=== PATIENT | male | born 1955 | race Caucasian/White ===

== ENCOUNTER 2020-05-05 15:00 | Outpatient (CLI) | payer MEDICARE | END 2020-05-05 23:59 | disposition home or self-care (01) | LOC: RAD 15:00 → CVU 23:59 | PROVIDERS: ATTEND Internal Medicine Cardiovascular Disease | DX: Z01.810 Encounter for preprocedural cardiovascular examination (principal); I08.8 Other rheumatic multiple valve diseases; I10 Essential (primary) hypertension; E78.5 Hyperlipidemia, unspecified | CPT/HCPCS: 93306; 93356 ==

== ENCOUNTER 2020-05-07 12:34 | Outpatient (CLI) | payer MEDICARE ==
[2020-05-07] MEDS ORDERED: BLOOD PRESSURE (14:03)
[2020-05-07] MEDS ORDERED: STATIN (14:03)
[2020-05-07] MEDS ORDERED: ASPI-496 PO (14:03)
[2020-05-07 14:16] LABS: BASOPHILS # (AUTO) 0.04 x10^3/uL (0-0.1); BASOPHILS % (AUTO) 0 % (0-1); EOSINOPHILS # (AUTO) 0.24 x10^3/uL (0-0.4); EOSINOPHILS % (AUTO) 2 % (1-7); LYMPHOCYTES % (AUTO) 31 % (22-44); MD NO; MEAN CORPUSCULAR HEMOGLOBIN 31.1 pg (27.5-34.5); MEAN CORPUSCULAR HGB CONC 33.8 g/dL (33.2-36.2); MEAN PLATELET VOLUME 8.7 fL (7.4-10.4); MONOCYTES % (AUTO) 6 % (2-9); NEUTROPHILS # (AUTO) 5.99 x10^3/uL (1.8-6.8); NEUTROPHILS % (AUTO) 60 % (42-75); PLATELET COUNT 150 x10^3/uL (130-400); RED BLOOD COUNT 5.33 x10^6/uL (4.38-5.82); RED CELL DISTRIBUTION WIDTH 13.3 % (9.4-14.8)
[2020-05-07 14:17] LABS: MICROSCOPIC NOT IND
[2020-05-07 14:19] LABS: ALANINE AMINOTRANSFERASE 113 U/L (12-78); ALBUMIN 3.9 g/dL (3.4-5.0); ANION GAP 6 mmol/L (5-15); CALCIUM 8.7 mg/dL (8.5-10.1); CHLORIDE 108 mmol/L (98-107); INTERNATIONAL NORMALIZED RATIO 1.01 (0.93-1.1); PROTHROMBIN TIME 10.7 Seconds (9.6-11.5)
[2020-05-07 14:22] LABS: ALKALINE PHOSPHATASE 56 U/L (45-117); BILIRUBIN,TOTAL 0.7 mg/dL (0.2-1.0); CREATININE 0.99 mg/dL (0.7-1.3); TOTAL PROTEIN 7.3 g/dL (6.4-8.2)
== END 2020-05-07 23:59 | disposition home or self-care (01) ==
LOC: STAR 12:34
PROVIDERS: ATTEND Neurological Surgery
DX: Z01.810 Encounter for preprocedural cardiovascular examination (principal); Z01.818 Encounter for other preprocedural examination; Z01.812 Encounter for preprocedural laboratory examination; Z01.811 Encounter for preprocedural respiratory examination; R79.1 Abnormal coagulation profile; R82.90 Unspecified abnormal findings in urine; R94.31 Abnormal electrocardiogram [ECG] [EKG]; M51.37 Other intervertebral disc degeneration, lumbosacral region; I70.0 Atherosclerosis of aorta
CPT/HCPCS: 36415; 71046; 72110; 80053; 81003; 85025; 85610; 85730; 93005

== ENCOUNTER 2020-05-12 07:26 | Outpatient (CLI) | payer MEDICARE ==
[~2020-05-12 07:26] MED LIST: ASPI-496 PO; BLOOD PRESSURE; STATIN
== END 2020-05-12 23:59 | disposition home or self-care (01) ==
LOC: STAR 07:26
PROVIDERS: ATTEND Anesthesiology
DX: Z11.59 Encounter for screening for other viral diseases (principal)
CPT/HCPCS: 36415; 87635

== ENCOUNTER → 2020-05-26 | Outpatient (CLI) | payer MEDICARE | END | disposition home or self-care (01) | LOC: STAR 12:37 | PROVIDERS: ATTEND Anesthesiology | DX: Z01.818 Encounter for other preprocedural examination (principal); Z11.59 Encounter for screening for other viral diseases | CPT/HCPCS: 36415; 87635 ==

== ENCOUNTER 2020-05-30 07:45 | Observation (INO) | payer MEDICARE ==
[~2020-05-30] VITALS: Ht 182.9 cm; Wt 101.0 kg
[~2020-05-30 07:45] MED LIST changes: +BACITRACIN 50,000 UNIT ONE; +BUPIVACAINE/PF-EPI 0.5% 1:200K ONE
[2020-05-30] MEDS ORDERED: BUPIVACAINE 0.25% ONE (08:18)
[2020-05-30] MEDS ORDERED: BUPIVACAINE/PF-EPI 0.5% 1:200K ONE (08:18)
[2020-05-30] MEDS ORDERED: BACITRACIN 50,000 UNIT ONE (08:18)
[2020-05-30] MEDS ORDERED: VANCOMYCIN 1,000 MG ONE (08:18)
[2020-05-30] MEDS ORDERED: LACTATED RINGERS 1,000 ML IV SCH (08:37)
[2020-05-30] MEDS ORDERED: CHLORHEXIDINE 15 ML UDC MM ONE (09:00)
[2020-05-30] MEDS ORDERED: FENTANYL PF 250 MCG/5ML ONE (11:54)
[2020-05-30] MEDS ORDERED: MIDAZOLAM 1 MG/ML, 2ML ONE (11:54)
[2020-05-30] MEDS ORDERED: ONDANSETRON 2MG/ML, 2ML ONE (12:41)
[2020-05-30] MEDS ORDERED: DEXAMETHASONE 4 MG/ML, 1ML ONE (12:41)
[2020-05-30] MEDS ORDERED: SUCCINYLCHOLINE 20 MG/ML, 10ML ONE (12:41)
[2020-05-30] MEDS ORDERED: CEFAZOLIN 1,000 MG ONE (12:41)
[2020-05-30] MEDS ORDERED: PROPOFOL 50 ML ONE (13:47)
[2020-05-30] MEDS ORDERED: hydrALAzine 20 MG/ML, 1ML IV PRN (14:00)
[2020-05-30] MEDS ORDERED: ACETAMINOPHEN 325 MG TABLET PO PRN (14:00)
[2020-05-30] MEDS ORDERED: ALBUTEROL SULFATE 2.5 MG/3 ML NPPB PRN (14:00)
[2020-05-30] MEDS ORDERED: LABETALOL 5MG/ML, 20ML IV PRN (14:00)
[2020-05-30] MEDS ORDERED: FENTANYL PF 100 MCG/2ML IV PRN (14:00)
[2020-05-30] MEDS ORDERED: DIAZEPAM 5 MG/ML, 2ML IVPush PRN (14:00)
[2020-05-30] MEDS ORDERED: KETOROLAC 30 MG/1 ML IV PRN (14:00)
[2020-05-30] MEDS ORDERED: PROMETHAZINE 25 MG/ML, 1ML IV PRN (14:00)
[2020-05-30] MEDS ORDERED: MEPERIDINE/PF 25MG/0.5ML IVPush PRN (14:00)
[2020-05-30] MEDS ORDERED: OXYcodone 5 MG/5 ML ORAL.SOL UDC PO PRN (14:00)
[2020-05-30] MEDS ORDERED: HYDROmorphone 2 MG/ML, 1ML IVPush PRN (14:00)
[2020-05-30] MEDS ORDERED: FENTANYL PF 100 MCG/2ML ONE (14:13)
[2020-05-30] MEDS ORDERED: FENTANYL PF 100 MCG/2ML EPIDPUSH ONE (14:17)
[2020-05-30] MEDS ORDERED: BUPIVACAINE/PF 0.25% EPIDPUSH ONE (14:17)
[2020-05-30] MEDS ORDERED: PHARMACY MAY ADJ FOR RENAL FX MC PRN (15:00)
[2020-05-30] MEDS ORDERED: SENNA/DOCUSATE TABLET PO PRN (15:00)
[2020-05-30] MEDS ORDERED: HYDROcodone/APAP 5/325 TABLET PO PRN (15:00)
[2020-05-30] MEDS ORDERED: CYCLOBENZAPRINE 10 MG TABLET PO PRN (15:00)
[2020-05-30] MEDS ORDERED: HYDROcodone/APAP 10/325 MG TABLET PO PRN (15:00)
[2020-05-30] MEDS ORDERED: DIPHENHYDRAMINE 50 MG/ML, 1ML IVPush PRN (15:00)
[2020-05-30] MEDS ORDERED: METHOCARBAMOL 750 MG TABLET PO PRN (15:00)
[2020-05-30] MEDS ORDERED: LABETALOL 5MG/ML, 20ML IVPush PRN (15:00)
[2020-05-30] MEDS ORDERED: morphine SULFATE 10 MG/ML, 1ML IVPush PRN (15:00)
[2020-05-30] MEDS ORDERED: ONDANSETRON 2MG/ML, 2ML IVPush PRN (15:00)
[2020-05-30] MEDS ORDERED: MAGNESIUM HYDROXIDE 8%, 30ML UDC PO PRN (15:00)
[2020-05-30] MEDS ORDERED: PROMETHAZINE 25 MG/ML, 1ML IM PRN (15:00)
[2020-05-30 16:42] VITALS: BP 143/83
[2020-05-30] MEDS: NS + 20MEQ KCL 1,000 ML IV SCH ×2 (17:21→19:44)
[2020-05-30 19:26] VITALS: BP 138/82
[2020-05-30] MEDS: CEFAZOLIN PMX 1GM/50ML 50 ML IVPB SCH (21:59)
[2020-05-30] MEDS: SODIUM CHLORIDE FLUSH 10ML SYR IVF SCH (22:00)
[2020-05-31 00:53] VITALS: BP 122/63
[2020-05-31 04:06] VITALS: BP 119/67
[2020-05-31] MEDS: CEFAZOLIN PMX 1GM/50ML 50 ML IVPB SCH (05:34)
[2020-05-31 07:38] VITALS: BP 122/70
[2020-05-31] MEDS: SODIUM CHLORIDE FLUSH 10ML SYR IVF SCH ×2 (09:00→21:40)
[2020-05-31] MEDS: NS + 20MEQ KCL 1,000 ML IV SCH ×3 (11:00→23:06)
[2020-05-31 12:11] VITALS: BP 142/76
[2020-05-31 19:11] VITALS: BP 133/82
[2020-06-01 00:12] VITALS: BP 153/82
[2020-06-01] MEDS: OXYcodone/APAP 5/325MG TABLET PO PRN ×2 (00:16→06:05)
[2020-06-01 07:35] VITALS: BP 143/78
[2020-06-01] MEDS: SODIUM CHLORIDE FLUSH 10ML SYR IVF SCH (09:00)
[2020-06-01] MEDS ORDERED: OXYC-302 PO (10:13)
[2020-06-01] MEDS ORDERED: CYCL-259 PO (10:14)
== END 2020-06-01 11:10 | disposition home or self-care (01) ==
LOC: OUT 07:45 → ORIP 14:59 → 4NE 16:14 → DCLOUNGE 06-01 11:05
PROVIDERS: ADMIT Neurological Surgery; ATTEND Neurological Surgery
DX: M48.061 Spinal stenosis, lumbar region without neurogenic claudication (principal); F17.210 Nicotine dependence, cigarettes, uncomplicated; M71.38 Other bursal cyst, other site; B18.2 Chronic viral hepatitis C; E78.2 Mixed hyperlipidemia; I10 Essential (primary) hypertension; Z95.1 Presence of aortocoronary bypass graft
CPT/HCPCS: 63047; 63048; 63056; 63057; 72100; 95938; 95941; 96361; 96365; 96366; 97163; G0378; J0330; J0690; J1100; J2250; J2405; J2704; J3010; J3370; J3480; J3490; J7120

== ENCOUNTER → 2021-03-17 | Outpatient (CLI) | payer MEDICARE ==
[~2021-03-17] MED LIST changes: -BACITRACIN 50,000 UNIT ONE; -BUPIVACAINE/PF-EPI 0.5% 1:200K ONE; +CYCL10TA2 PO; +LISI5TAB7 PO; +METO25TA91 PO; +NITR0.4T41 SL; +OXYC1TAB14 PO; +SIMV40TA20 PO
[2021-03-17 08:39] LABS: ALANINE AMINOTRANSFERASE 145 U/L (12-78); ALBUMIN 4.1 g/dL (3.4-5.0); ANION GAP 5 mmol/L (5-15); CALCIUM 9.2 mg/dL (8.5-10.1); CHLORIDE 109 mmol/L (98-107)
[2021-03-17 08:41] LABS: ALKALINE PHOSPHATASE 71 U/L (45-117); BILIRUBIN,TOTAL 0.8 mg/dL (0.2-1.0); TOTAL PROTEIN 7.8 g/dL (6.4-8.2)
== END | disposition home or self-care (01) ==
LOC: STAR 07:15
PROVIDERS: ATTEND Orthopaedic Surgery Adult Reconstructive Orthopaedic Surgery
DX: Z01.818 Encounter for other preprocedural examination (principal); M25.511 Pain in right shoulder; M19.011 Primary osteoarthritis, right shoulder; Z20.822 Contact with and (suspected) exposure to COVID-19
CPT/HCPCS: 36415; 80053; 93005; U0003; U0005

== ENCOUNTER 2021-03-23 11:53 | Day surgery (SDC) | payer MEDICARE ==
[~2021-03-23] VITALS: Ht 182.9 cm; Wt 98.9 kg
[2021-03-23] MEDS ORDERED: EPINEPHRINE 1 MG/ML, 1ML ONE (12:08)
[2021-03-23] MEDS ORDERED: BUPIVACAINE/PF 0.25% ONE (12:08)
[2021-03-23] MEDS ORDERED: BACITRACIN 50,000 UNIT ONE (12:08)
[2021-03-23 12:14] VITALS: BP 159/94
[2021-03-23] MEDS ORDERED: CHLORHEXIDINE 15 ML UDC ONE (12:19)
[2021-03-23] MEDS ORDERED: MIDAZOLAM 1 MG/ML, 2ML ONE (12:26)
[2021-03-23] MEDS ORDERED: FENTANYL PF 100 MCG/2ML ONE (12:26)
[2021-03-23] MEDS ORDERED: LACTATED RINGERS 1,000 ML IV SCH (12:30)
[2021-03-23] MEDS ORDERED: CHLORHEXIDINE 15 ML UDC PO ONE (12:30)
[2021-03-23] MEDS ORDERED: PROPOFOL 10 MG/ML, 20ML ONE (13:38)
[2021-03-23] MEDS ORDERED: ONDANSETRON 2MG/ML, 2ML ONE (13:38)
[2021-03-23] MEDS ORDERED: SUCCINYLCHOLINE 20 MG/ML, 10ML ONE (13:38)
[2021-03-23] MEDS ORDERED: DEXAMETHASONE 4 MG/ML, 1ML ONE (13:38)
[2021-03-23] MEDS ORDERED: NEOSTIGMINE 1 MG/ML, 10ML ONE (13:38)
[2021-03-23] MEDS ORDERED: ROCURONIUM 10MG/ML,5ML ONE (13:38)
[2021-03-23] MEDS ORDERED: GLYCOPYRROLATE 0.2MG/1ML, 5ML ONE (13:38)
[2021-03-23] MEDS ORDERED: CEFAZOLIN 1,000 MG ONE (13:38)
[2021-03-23] MEDS ORDERED: OXYcodone 5 MG/5 ML ORAL.SOL UDC ONE (14:08)
[2021-03-23] MEDS ORDERED: ACETAMINOPHEN 650 MG/20.3 ML UDC ONE (14:09)
[2021-03-23] MEDS ORDERED: KETOROLAC 30 MG/1 ML ONE (14:10)
[2021-03-23] MEDS ORDERED: DIAZEPAM 5 MG/ML, 2ML IVPush PRN (14:30)
[2021-03-23] MEDS ORDERED: ALBUTEROL SULFATE 2.5 MG/3 ML NPPB PRN (14:30)
[2021-03-23] MEDS ORDERED: LABETALOL 5MG/ML, 20ML IV PRN (14:30)
[2021-03-23] MEDS ORDERED: ACETAMINOPHEN 325 MG TABLET PO PRN (14:30)
[2021-03-23] MEDS ORDERED: KETOROLAC 30 MG/1 ML IV PRN (14:30)
[2021-03-23] MEDS ORDERED: MEPERIDINE/PF 25MG/0.5ML IVPush PRN (14:30)
[2021-03-23] MEDS ORDERED: OXYcodone 5 MG/5 ML ORAL.SOL UDC PO PRN (14:30)
[2021-03-23] MEDS ORDERED: hydrALAzine 20 MG/ML, 1ML IV PRN (14:30)
[2021-03-23] MEDS ORDERED: PROMETHAZINE 25 MG/ML, 1ML IV PRN (14:30)
[2021-03-23] MEDS ORDERED: HYDROmorphone 2 MG/ML, 1ML IVPush PRN (14:30)
[2021-03-23] MEDS ORDERED: FENTANYL PF 100 MCG/2ML IV PRN (14:30)
== END 2021-03-23 15:30 | disposition home or self-care (01) ==
LOC: OUT 11:53
PROVIDERS: ATTEND Orthopaedic Surgery Adult Reconstructive Orthopaedic Surgery
DX: S43.431A Superior glenoid labrum lesion of right shoulder, initial encounter (principal); M19.011 Primary osteoarthritis, right shoulder; M75.41 Impingement syndrome of right shoulder; I25.10 Atherosclerotic heart disease of native coronary artery without angina pectoris; I10 Essential (primary) hypertension; E78.2 Mixed hyperlipidemia; B18.2 Chronic viral hepatitis C; F17.210 Nicotine dependence, cigarettes, uncomplicated; Z79.82 Long term (current) use of aspirin; Z79.899 Other long term (current) drug therapy; Z95.1 Presence of aortocoronary bypass graft; X58.XXXA Exposure to other specified factors, initial encounter; Y93.89 Activity, other specified; Y92.89 Other specified places as the place of occurrence of the external cause; Y99.8 Other external cause status
CPT/HCPCS: 29824; 29826; 64415; J0171; J0330; J0690; J1100; J1885; J2250; J2405; J2704; J2710; J3010; J7120